=== PATIENT | male | born 1930 | race Caucasian/White ===

== ENCOUNTER → 2018-02-15 | Outpatient (CLI) | payer OTHER ==
[~2018-02-15] MED LIST: FISH OIL 1,001000 M2 PO; LASIX 20 MG TAB20 MG PO; LEVOTHYROXIN0.075 MG PO; LISINOPRIL20 MG PO; PYRIDOXINE HCL50 MG PO; SORINE 80 MG TA80 M1 PO; XARELTO10 MG PO
--- NOTE | 2018-02-15 11:56 | 2DMMODE ---
[place] [address] 2 D/M-MODE ECHOCARDIOGRAM Name: TORINMOY L Room: [facility]#: [id number] Admission: 02/15/18 Attend Phys: Hans Balderrama MD Discharge: Date of : [birth year] Date of Service: 02/15/18 1155 Report #: [id number] THIS REPORT FOR: //name// APPROVED REPORT Study performed: 02/15/2018 10:14:20 EXAM: Comprehensive 2D, Doppler, and color-flow Echocardiogram Patient Location: Out-Patient Status: routine BSA: 1.90 HR: 70 bpm BP: 121/61 mmHg Other Information Study Quality: Technically Difficult Technically limited study due to Barrel chested/ribs. Indications Congestive Heart Failure 2D Dimensions LVEF(%): 69.84 (>50%) IVSd: 8.24 (7-11mm) LVOT Diam: 20.89 (18-24mm) LVDd: 40.73 mm PWd: 9.84 (7-11mm) Ascending Ao: 24.21 (22-36mm) LVDs: 24.87 (25-40mm) Aortic Root: 29.90 mm Guevara's LVEF: 69.84 % Volumes Left Atrial Volume (Systole) LA ESV Index: 17.50 mL/m2 Aortic Valve AoV Peak Jesse.: 1.11 m/s AO Peak Gr.: 4.95 mmHg LVOT Max P.61 mmHg AO Mean Gr.: 3.16 mmHg LVOT Mean P.86 mmHg LVOT Max V: 0.63 m/s AO V2 VTI: 22.62 cm LVOT Mean V: 0.43 m/s GERALDINE (VTI): 2.67 cm2 LVOT V1 VTI: 17.65 [place] [address] 2 D/M-MODE ECHOCARDIOGRAM Name: MOY HARKINS Room: [facility]#: [id number] Admission: 02/15/18 Attend Phys: Hans Balderrama MD Discharge: Date of : [birth year] Date of Service: 02/15/18 1155 Report #: [id number] E/A Ratio: 0.91 MV Decel. Time: 294.22 ms MV E Max Jesse.: 0.52 m/s MV PHT: 85.32 ms MVA (PHT): 2.58 cm2 TDI E/Lateral E': 6.50 E/Medial E': 10.40 Medial E' Jesse.: 0.05 m/s Lateral E' Jesse.: 0.08 m/s Pulmonary Valve PV Peak Jesse.: 1.33 m/s PV Peak Gr.: 7.03 mmHg Left Ventricle The left ventricle is normal size. There is normal LV segmental wall motion. There is normal left ventricular wall thickness. Left ventricular systolic function is normal. LVEF is 55-60%. Transmitral Doppler flow pattern suggests impaired LV relaxation. Right Ventricle The right ventricle is normal size. The right ventricular systolic function is normal. Atria The left atrium size is normal. The right atrium size is normal. Aortic Valve Moderate aortic valve sclerosis. No aortic regurgitation is present. There is no aortic valvular stenosis. Mitral Valve There is mitral annular calcification. There is no mitral valve regurgitation noted. No evidence of mitral valve stenosis. Tricuspid Valve The tricuspid valve is normal in structure. There is no tricuspid valve regurgitation noted. Pulmonic Valve Pulmonic valve is not well visualized. There is no pulmonic valvular regurgitation. Great Vessels The aortic root is normal in size. [place] [address] 2 D/M-MODE ECHOCARDIOGRAM Name: MOY HARKINS Room: [facility]#: [id number] Admission: 02/15/18 Attend Phys: Hans Balderrama MD Discharge: Date of : [birth year] Date of Service: 02/15/18 1155 Report #: [id number] visualized. Pericardium There is no pericardial effusion. <Conclusion> The left ventricle is normal size. There is normal left ventricular wall thickness. Left ventricular systolic function is normal. LVEF is 55-60%. Transmitral Doppler flow pattern suggests impaired LV relaxation. Moderate aortic valve sclerosis. There is mitral annular calcification. <ELECTRONICALLY SIGNED> By: Shravan Adrian MD, FACC 02/15/18 1155 1155 1155 Shravan Adrian MD, FACC /INF
== END ==
LOC: M.CRD 02-03 12:58 → M.ULTRA 08:28 → M.CRD 10:00
DX: I35.8 Other nonrheumatic aortic valve disorders (principal); I34.8 Other nonrheumatic mitral valve disorders; I50.9 Heart failure, unspecified; M79.89 Other specified soft tissue disorders; R60.0 Localized edema